=== PATIENT | female | born 1980 | race Caucasian/White ===

== ENCOUNTER 2017-12-26 09:54 | Outpatient (CLI) | payer MEDICAID | END 2017-12-26 09:55 | disposition home or self-care (01) | LOC: BICMAMMO 09:54 → MERGE 10:00 | PROVIDERS: ATTEND Family Medicine | DX: N63.20 Unspecified lump in the left breast, unspecified quadrant (principal); Z80.3 Family history of malignant neoplasm of breast | CPT/HCPCS: 77066; G0279 ==